=== PATIENT | female | born 1990 | race Caucasian/White ===

== ENCOUNTER 2016-05-15 14:29 | Emergency (ER) | payer SELFPAY ==
[~2016-05-15] VITALS: Ht 162.6 cm; Wt 83.1 kg
[2016-05-15] MEDS ORDERED: NORCO 5/3251 TABLET PO (16:31)
[2016-05-15 16:45] VITALS: BP 137/76
== END 2016-05-15 16:46 | disposition home or self-care (01) ==
LOC: EME 14:29
DX: S30.0XXA Contusion of lower back and pelvis, initial encounter (principal); S39.012A Strain of muscle, fascia and tendon of lower back, initial encounter; W10.9XXA Fall (on) (from) unspecified stairs and steps, initial encounter; Y92.009 Unspecified place in unspecified non-institutional (private) residence as the place of occurrence of the external cause
CPT/HCPCS: 72100; 99281; 99282

== ENCOUNTER 2016-05-18 08:13 | Emergency (ER) | payer SELFPAY ==
[~2016-05-18] VITALS: Ht 162.6 cm; Wt 81.4 kg
[~2016-05-18 08:13] MED LIST: NORCO 5/3251 TABLET PO
[2016-05-18 08:44] LABS: HEMATOCRIT 46.1 % (36.0-46.0); MCH 31.3 PG (29.0-34.0); MCHC 33.6 G/DL (30.0-36.0); MCV 93.1 FL (83-99); MEAN PLAT.VOLUME 9.5 uM^3 (9.5-12.4); PLATELET COUNT 214 K/uL (156-360); RBC DIS.WIDTH-CV 12.8 % (11.8-14.6); RBC DIS.WIDTH-SD 42.7 % (39-53); RED BLOOD COUNT 4.95 M/uL (3.80-5.20); WHITE BLOOD COUNT 8.7 K/uL (4.1-10.2)
[2016-05-18 08:57] LABS: CHLORIDE 108 mEq/L (99-109); POTASSIUM 4.3 mEq/L (3.7-5.4); SODIUM 140 mEq/L (136-147)
[2016-05-18 08:59] LABS: GLUCOSE 165 mg/dL (70-99)
[2016-05-18 09:00] LABS: ANION GAP 9 MEQ/L (2-14)
[2016-05-18 09:03] LABS: GFR ESTIMATE (CALCULATED) > 59 mL/min/
[2016-05-18 09:04] LABS: UREA NITROGEN (BUN) 6 mg/dL (9-23)
[2016-05-18] MEDS ORDERED: FLEXERIL10 MG PO (11:37)
[2016-05-18] MEDS ORDERED: TESSALON200 MG PO (11:37)
[2016-05-18] MEDS ORDERED: NAPROXEN500 MG PO (11:37)
[2016-05-18] MEDS ORDERED: LIDODERM 5% P1 PATCH TD (11:37)
[2016-05-18] MEDS ORDERED: PREDNISONE20 MG PO (11:37)
[2016-05-18] MEDS ORDERED: VENTOLIN HFA18 GM IH ×2 (11:37→11:39)
[2016-05-18 11:49] VITALS: BP 115/80
== END 2016-05-18 11:50 | disposition home or self-care (01) ==
LOC: EME 08:13
DX: J98.01 Acute bronchospasm (principal); M54.5 Low back pain; F17.200 Nicotine dependence, unspecified, uncomplicated; Z91.040 Latex allergy status; Z88.6 Allergy status to analgesic agent
CPT/HCPCS: 71020; 80048; 85027; 94640; 99281; 99283; J7512

== ENCOUNTER 2016-10-11 22:08 | Emergency (ER) | payer SELFPAY ==
[~2016-10-11] VITALS: Ht 162.6 cm; Wt 84.2 kg
[~2016-10-11 22:08] MED LIST changes: +FLEXERIL10 MG PO; +LIDODERM 5% P1 PATCH TD; +NAPROXEN500 MG PO; +PREDNISONE20 MG PO; +TESSALON200 MG PO; +VENTOLIN HFA18 GM IH
[2016-10-12] MEDS ORDERED: PERCOCET 5/31 TABLET PO (00:53)
[2016-10-12] MEDS ORDERED: BACTRIM,SEPT1 TABLET PO (00:53)
[2016-10-12 01:00] VITALS: BP 122/83
== END 2016-10-12 01:01 | disposition home or self-care (01) ==
LOC: EME 22:08
PROC: 0H9AXZZ Drainage of Inguinal Skin, External Approach (ICD-10-PCS; principal; 2016-10-11)
DX: N76.4 Abscess of vulva (principal); F17.200 Nicotine dependence, unspecified, uncomplicated
CPT/HCPCS: 87070; 87075; 87076; 87205; 99281; 99284

== ENCOUNTER 2016-10-13 17:13 | Emergency (ER) | payer SELFPAY ==
[~2016-10-13] VITALS: Ht 162.6 cm; Wt 84.8 kg
[~2016-10-13 17:13] MED LIST changes: +BACTRIM,SEPT1 TABLET PO; +PERCOCET 5/31 TABLET PO
[2016-10-13 20:03] LABS: EOSINOPHIL (%) 2.6 % (0-5); EOSINOPHIL COUNT 0.2 K/uL (0-0.3); HEMATOCRIT 45.1 % (36.0-46.0); IMMATURE GRANULOCYTE (%) 0.3 % (0.0-0.7); LYMPHOCYTE COUNT 2.4 K/uL (1.0-2.8); MCHC 32.6 G/DL (30.0-36.0); MEAN PLAT.VOLUME 9.5 uM^3 (9.5-12.4); MONOCYTE (%) 6.9 % (3-12); MONOCYTE COUNT 0.7 K/uL (0-0.8); PLATELET COUNT 195 K/uL (156-360); RBC DIS.WIDTH-SD 40.7 % (39-53); WHITE BLOOD COUNT 9.4 K/uL (4.1-10.2)
[2016-10-13 20:10] LABS: CHLORIDE 106 mEq/L (99-109); POTASSIUM 4.2 mEq/L (3.7-5.4); SODIUM 136 mEq/L (136-147)
[2016-10-13 20:12] LABS: GLUCOSE 95 mg/dL (70-99)
[2016-10-13 20:13] LABS: ANION GAP 8 MEQ/L (2-14)
[2016-10-13 20:16] LABS: GFR ESTIMATE (CALCULATED) > 59 mL/min/
[2016-10-13 20:17] LABS: UREA NITROGEN (BUN) 11 mg/dL (9-23)
[2016-10-13 20:24] LABS: QUANTITATIVE HCG < 4.0 MIU/ML
[2016-10-14 01:45] VITALS: BP 125/90
== END 2016-10-14 01:47 | disposition home or self-care (01) ==
LOC: EME 17:13
PROVIDERS: Physician Assistant
DX: N76.4 Abscess of vulva (principal); N76.2 Acute vulvitis; J44.9 Chronic obstructive pulmonary disease, unspecified; F17.200 Nicotine dependence, unspecified, uncomplicated; Z91.040 Latex allergy status; Z88.6 Allergy status to analgesic agent
CPT/HCPCS: 72193; 80048; 83605; 84702; 85025; 87040; 99281; 99285; J0696; J1885; J3010; J7030; J7050

== ENCOUNTER 2017-03-03 17:18 | Emergency (ER) | payer SELFPAY ==
[~2017-03-03] VITALS: Ht 165.1 cm; Wt 83.2 kg
[2017-03-03] MEDS ORDERED: MOTRIN800 MG PO (20:28)
[2017-03-03] MEDS ORDERED: AMOXICILLIN875 MG PO (20:28)
[2017-03-03] MEDS ORDERED: TYLENOL WITH C1 EACH PO (20:28)
[2017-03-03 20:43] VITALS: BP 139/84
== END 2017-03-03 20:43 | disposition home or self-care (01) ==
LOC: EME 17:18
DX: K08.89 Other specified disorders of teeth and supporting structures (principal); K03.81 Cracked tooth; K02.9 Dental caries, unspecified; F17.200 Nicotine dependence, unspecified, uncomplicated; Z59.0 Homelessness
CPT/HCPCS: 99281; 99284

== ENCOUNTER 2017-03-05 19:58 | Emergency (ER) | payer OTHER ==
[~2017-03-05] VITALS: Ht 165.1 cm; Wt 83.5 kg
[~2017-03-05 19:58] MED LIST changes: +AMOXICILLIN875 MG PO; +MOTRIN800 MG PO; +TYLENOL WITH C1 EACH PO
[2017-03-05] MEDS ORDERED: CLEOCIN300 MG PO (21:09)
[2017-03-05] MEDS ORDERED: NORCO 5/3251 TABLET PO (21:09)
[2017-03-05 21:54] VITALS: BP 120/79
== END 2017-03-05 21:57 | disposition home or self-care (01) ==
LOC: EME 19:58
DX: L03.213 Periorbital cellulitis (principal); W57.XXXA Bitten or stung by nonvenomous insect and other nonvenomous arthropods, initial encounter; Z59.0 Homelessness; Z91.040 Latex allergy status; Z88.6 Allergy status to analgesic agent
CPT/HCPCS: 70487; 99281; 99285; J7030

== ENCOUNTER 2017-03-06 03:20 | Emergency (ER) | payer OTHER ==
[~2017-03-06] VITALS: Ht 165.1 cm; Wt 83.1 kg
[~2017-03-06 03:20] MED LIST changes: +CLEOCIN300 MG PO
[2017-03-06 06:08] VITALS: BP 133/65
== END 2017-03-06 06:10 | disposition home or self-care (01) ==
LOC: EME 03:20
DX: L03.213 Periorbital cellulitis (principal); S00.262D Insect bite (nonvenomous) of left eyelid and periocular area, subsequent encounter
CPT/HCPCS: 99281; 99284; J1885